=== PATIENT | male | born 1955 | race Caucasian/White ===

== ENCOUNTER → 2020-01-17 12:37 | Outpatient (CLI) | payer OTHER, SELFPAY ==
[2020-01-17 13:23] LABS: Prothrombin Time 34.2 SECONDS (10.1-12.7)
== END ==
PROVIDERS: Referring Provider Internal Medicine; Visit Provider Internal Medicine
DX: I48.0 Paroxysmal atrial fibrillation (principal); Z79.01 Long term (current) use of anticoagulants
CPT/HCPCS: 36415; 85610